=== PATIENT | male | born 1995 | race Caucasian/White ===

== ENCOUNTER 2018-10-02 15:42 | Emergency (ER) | payer BC ==
[2018-10-02 15:56] VITALS: BP 152/100
--- NOTE | 2018-10-02 16:40 | XRAY Report ---
Reason: pain Procedure Date: 10/02/2018 Accession Number: [id number] / [id number] Procedure: XR - Lumbar Spine 2 View CPT Code: FULL RESULT: EXAM: LUMBOSACRAL SPINE RADIOGRAPHY EXAM DATE: 10/02/2018 04:23 PM. CLINICAL HISTORY: Pain. COMPARISONS: None. TECHNIQUE: 2 views. FINDINGS: Alignment: Normal. No spondylolisthesis or scoliosis. Bones: Five [id number] lumbar vertebral bodies are present. No acute fracture.. Disks: Mild L5-S1 disk height loss. There may be slight L4-L5 disk height loss as well. Facets: Unremarkable. Sacroiliac Joints: Unremarkable. Soft Tissues: Unremarkable. IMPRESSION: Mild lower lumbar disk degeneration. RADIA
--- NOTE | 2018-10-02 17:03 | ED Physician Documentation ---
PD HPI BACK PAIN - Stated complaint Stated Complaint: BK PX - Chief complaint Chief Complaint: Back Pain - History obtained from History obtained from: Patient, Family - History of Present Illness Timing - duration: Months (8) Timing - details: Gradual onset, Still present, Intermittant Pain level max: 10 Pain level now: 10 Location: Lower Quality: Spasm, Sharp, Similar to prior episodes Associated symptoms: No: Fever, Weakness, Numbness, Incontinent of urine, Hematuria, Incontinent of stool Improves with: Rest Worsened by: Movement Contributing factors: Other (MMA or fight sports) Similar symptoms before: Diagnosis Recently seen: Clinic - Additional information Additional information: 22-year-old male with no past medical or surgical history complaining of chronic low back pain the past 8 months. Patient stated he used to do [employer] sports fight and might have injured his back. According to his chiropractor from [place] that there is changes on his L5. He is here today as he had moved to [place] 4 weeks ago and looking for primary doctor and pain medication. Patient denies any recent injury or lifting injuries. Review of Systems Ten Systems: 10 systems reviewed and negative Constitutional: denies: Fever, Myalgias GI: denies: Abdominal Pain, Nausea, Vomiting, Constipation, Diarrhea : denies: Dysuria, Hematuria Musculoskeletal: reports: Back pain. denies: Neck pain, Extremity pain, Joint pain, Extremity swelling, Joint swelling, Pain with weight bearing Neurologic: denies: Generalized weakness, Focal weakness, Numbness, Head injury PD PAST MEDICAL HISTORY - Past Medical History Past Medical History: No - Past Surgical History Past Surgical History: No - Present Medications Home Medications: Ambulatory Orders Medication Instructions Recorded Confirmed Cyclobenzaprine [Flexeril] 10 mg PO TID PRN #20 tablet 10/02/18 Ibuprofen [Motrin] 800 mg PO Q8H PRN #30 tablet 10/02/18 Lidocaine Patch 5% [Lidoderm Patch] 1 patch TOP DAILY PRN #10 patch 10/02/18 - Social History Does the pt smoke?: No Smoking Status: Never smoker Does the pt drink ETOH?: Yes Does the pt have substance abuse?: No - Immunizations Immunizations are current?: Yes PD ED PE NORMAL - Vitals Vital signs reviewed: Yes - General General: Alert and oriented X 3, No acute distress, Well developed/nourished - HEENT HEENT: Moist mucous membranes - Neck Neck: Supple, no meningeal sign, No bony TTP - Cardiac Cardiac: RRR, No murmur - Respiratory Respiratory: No respiratory distress, Clear bilaterally - Abdomen Abdomen: Normal bowel sounds, Soft, Non tender, Non distended - Back Back: No CVA TTP, No spinal TTP, Other (With right leg raising patient stated his back hurts more.) - Derm Derm: Normal color, Warm and dry, No rash - Extremities Extremities: No deformity, No tenderness to palpate, Normal ROM s pain, No edema - Neuro Neuro: Alert and oriented X 3, No motor deficit, No sensory deficit, Other (Ambulatory with steady gait. No midline tenderness in the spine. With forward bending patient is unable to touch his toes due to discomfort.) - Psych Psych: Normal mood, Normal affect Results - Vitals Vitals: Vital Signs - 24 hr 10/02/18 15:54 Temperature 36.7 C Heart Rate 86 Respiratory 16 Rate Blood Pressure 152/100 H O2 Saturation 99 PD MEDICAL DECISION MAKING - ED course Complexity details: re-evaluated patient (1654 Patient laying down as this is his position of comfort. He is able to sit up and stand up without difficulty. Patient and father inform of test results. They are interested in getting a new PCP and we will get them booklet for last list of resources in the area. Will discharge patient on Motrin, Flexeril, lidocaine patch.Patient laying down as this is his position of comfort. He is able to sit up and stand up without difficulty. Patient and father inform of test results. They are interested in getting a new PCP and we will get them booklet for list of resources in the area. Will discharge patient on Motrin, Flexeril, lidocaine patch.), considered differential (Lumbar strain, fracture, herniated disc, arthritis), d/w patient, d/w family Departure - Departure Disposition: 01 Home, Self Care Clinical Impression: Back pain Qualifiers: Back pain location: low back pain Chronicity: chronic Back pain laterality: unspecified Sciatica presence: with sciatica Sciatica laterality: sciatica of right side Qualified Code(s): M54.41 - Lumbago with sciatica, right side Condition: Stable Instructions: ED Neck Back Pain General Prescriptions: Cyclobenzaprine [Flexeril] 10 mg PO TID PRN #20 tablet PRN Reason: Spasms Ibuprofen [Motrin] 800 mg PO Q8H PRN #30 tablet PRN Reason: PAIN &/OR FEVER Lidocaine Patch 5% [Lidoderm Patch] 1 patch TOP DAILY PRN #10 patch PRN Reason: pain Comments: Follow-up with your new primary doctor. Get a referral to an orthopedic doctor. Avoid heavy lifting. Monitor your body mechanics so he does not aggravate your chronic back pain. Take the prescribed medication. If worse return to the emergency room.
== END 2018-10-02 17:12 | disposition home or self-care (01) ==
LOC: ED 15:42
DX: M54.41 Lumbago with sciatica, right side (principal)
CPT/HCPCS: 72100; 99283

== ENCOUNTER 2018-10-20 17:10 | Emergency (ER) | payer OTHER, BC ==
[2018-10-20 17:25] VITALS: BP 137/56
--- NOTE | 2018-10-20 17:35 | ED Physician Documentation ---
PD HPI LOWER EXT INJURY - Stated complaint Stated Complaint: L FOOT INJ - Chief complaint Chief Complaint: Ext Problem - History obtained from History obtained from: Patient - History of Present Illness PD HPI LOW EXT INJURY LOCATION: Left, Foot Type of injury: Twist Where injury occurred: Work Timing - onset: Yesterday Timing - duration: Days (1) Timing - details: Abrupt onset, Still present Improved by: Rest, Immobilization Worsened by: Moving, Palpating Associated symptoms: No: Weakness, Numbness, Tingling, Swelling Contributing factors: No: Anticoagulated Similar symptoms before: Has not had sx before Recently seen: Not recently seen - Additional information Additional information: 22-year-old male was at work yesterday and he had a palate lori he was bringing behind him. He stuck his foot on the wheel of the palate lori to slow the pallet lori down. This forced his foot into the ground forcing the plantar surface of his foot down hard and he now has pain over the dorsum of the first metatarsal. He is able to bear some weight. He went back to work today and he is able to walk on the outside of his foot and after about 3 hours he pain mounted and he had to call off work. He is comfortable when he is in bearing weight. Review of Systems Constitutional: denies: Fever Eyes: denies: Decreased vision Ears: denies: Ear pain Nose: denies: Congestion Throat: denies: Sore throat Respiratory: denies: Cough GI: denies: Vomiting : denies: Dysuria, Frequency Skin: denies: Rash Musculoskeletal: reports: Extremity pain, Pain with weight bearing. denies: Neck pain, Back pain, Extremity swelling Neurologic: denies: Generalized weakness, Focal weakness PD PAST MEDICAL HISTORY - Past Medical History Past Medical History: No - Past Surgical History Past Surgical History: No - Present Medications Home Medications: Ambulatory Orders Medication Instructions Recorded Confirmed No Known Home Medications 10/20/18 10/20/18 - Allergies Allergies/Adverse Reactions: Allergies Allergy/AdvReac Type Severity Reaction Status Date / Time No Known Drug Allergies Allergy Verified 10/20/18 17:25 - Social History Does the pt smoke?: No Smoking Status: Never smoker Does the pt drink ETOH?: No Does the pt have substance abuse?: No - Immunizations Immunizations are current?: Yes PD ED PE NORMAL - Vitals Vital signs reviewed: Yes (hypertensive ) - General General: Alert and oriented X 3, No acute distress, Well developed/nourished - HEENT HEENT: Atraumatic, PERRL, EOMI - Respiratory Respiratory: No respiratory distress - Derm Derm: Normal color, Warm and dry, No rash - Extremities Extremities: No deformity, No edema, Other (There is tenderness to the dorsum of the left foot over the mid shaft of the 1st MT. distal n/ intact. There is no pain over the calcaneus or the proximal 5th. 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, No motor deficit, No sensory deficit, Normal speech Eye Opening: Spontaneous Motor: Obeys Commands Verbal: Oriented GCS Score: 15 - Psych Psych: Normal mood, Normal affect Results - Vitals Vitals: Vital Signs - 24 hr 10/20/18 17:23 Temperature 37 C Heart Rate 95 Respiratory 18 Rate Blood Pressure 137/56 H O2 Saturation 100 Oxygen O2 Source Room air - Rads (name of study) foot left Radiology: Prelim report reviewed (Impression: No fracture or subluxation.), EMP read indepedently, See rad report PD MEDICAL DECISION MAKING - ED course Complexity details: reviewed results, re-evaluated patient, considered differential, d/w patient ED course: 22-year-old male with a twisting injury to his left foot has sprained his foot. There is no evidence of fracture on x-ray examination. I expect he will take the better part of a week to resolve this and he works in a warehouse doing a lot of walking and this was not tolerable to him today. Departure - Departure Disposition: 01 Home, Self Care Clinical Impression: Sprain of left foot Qualifiers: Encounter type: initial encounter Qualified Code(s): S93.602A - Unspecified sprain of left foot, initial encounter Condition: Stable Instructions: ED Sprain Foot Follow-Up: [facility] [Provider Group] Forms: Activity restrictions
--- NOTE | 2018-10-20 17:57 | XRAY Report ---
Reason: forced plantar flexion/pain over dorsal 1st mt Procedure Date: 10/20/2018 Accession Number: [id number] / [id number] Procedure: XR - Foot 3 View LT CPT Code: FULL RESULT: EXAM: LEFT FOOT RADIOGRAPHY EXAM DATE: 10/20/2018 05:46 PM. CLINICAL HISTORY: Forced plantar flexion/pain over dorsal 1st mt. COMPARISON: None. TECHNIQUE: 3 views. FINDINGS: Bones: Normal. No fractures or bone lesions. Joints: Normal. No subluxations. Soft Tissues: Normal. No soft tissue swelling. IMPRESSION: No fracture or subluxation. RADIA
== END 2018-10-20 18:10 | disposition home or self-care (01) ==
LOC: ED 17:10
DX: S93.602A Unspecified sprain of left foot, initial encounter (principal); X50.0XXA Overexertion from strenuous movement or load, initial encounter; Y93.89 Activity, other specified; Y99.0 Civilian activity done for income or pay
CPT/HCPCS: 99282

== ENCOUNTER 2018-10-21 15:36 | Emergency (ER) | payer OTHER, BC ==
[2018-10-21 15:42] VITALS: BP 142/90
--- NOTE | 2018-10-21 16:01 | ED Physician Documentation ---
History of Present Illness - Stated complaint Stated Complaint: NEEDS REVISED WORK NOTE - Chief complaint Chief Complaint: General - History obtained from History obtained from: Patient - History of Present Illness Timing: How many days ago (2) Pain level max: 2 Pain level now: 1 Improved by: rest Worsened by: walking - Additonal information Additional information: L foot pain after dropping an object on his foot at work. seen yesterday, negative xrays. Needs note to return to work today. Review of Systems Constitutional: denies: Fever Respiratory: denies: Cough GI: denies: Vomiting Skin: denies: Rash PD PAST MEDICAL HISTORY - Past Medical History Past Medical History: No - Past Surgical History Past Surgical History: No - Present Medications Home Medications: Ambulatory Orders Medication Instructions Recorded Confirmed No Known Home Medications 10/20/18 10/20/18 - Allergies Allergies/Adverse Reactions: Allergies Allergy/AdvReac Type Severity Reaction Status Date / Time No Known Drug Allergies Allergy Verified 10/21/18 15:41 - Social History Does the pt smoke?: No Smoking Status: Never smoker Does the pt drink ETOH?: No Does the pt have substance abuse?: No - Immunizations Immunizations are current?: Yes PD ED PE NORMAL - Vitals Vital signs reviewed: Yes - General General: Alert and oriented X 3, No acute distress - Derm Derm: Warm and dry - Extremities Extremities: Other (mild TTP over the dorsum of the L foot. NVI) - Neuro Neuro: Alert and oriented X 3 - Psych Psych: Normal mood, Normal affect Results - Vitals Vitals: Vital Signs - 24 hr 10/21/18 15:39 Temperature 36 C L Heart Rate 60 Respiratory 18 Rate Blood Pressure 142/90 H O2 Saturation 100 Oxygen O2 Source Room air PD MEDICAL DECISION MAKING - ED course Complexity details: considered differential, d/w patient ED course: Patient with a left foot contusion versus sprain. Ambulate in quite well in the emergency department. Neurovascularly intact. Will release him back to work tomorrow. Ambulates with a steady gait and without a limp. Patient counseled regarding signs and symptoms for which I believe and urgent re-evaluation would be necessary. Patient with good understanding of and agreement to plan and is comfortable going home at this time This document was made in part using voice recognition software. While efforts are made to proofread this document, sound alike and grammatical errors may occur. Departure - Departure Disposition: Home, Self Care Clinical Impression: Sprain of left foot Qualifiers: Encounter type: initial encounter Qualified Code(s): S93.602A - Unspecified sprain of left foot, initial encounter Condition: Good Instructions: ED Sprain Foot Follow-Up: your,doctor in 1 week [Other] Comments: Return if you worsen. You can use motrin or tylenol as needed for pain. Forms: Activity restrictions
== END 2018-10-21 16:08 | disposition home or self-care (01) ==
LOC: ED 15:36
DX: S93.602A Unspecified sprain of left foot, initial encounter (principal); W20.8XXA Other cause of strike by thrown, projected or falling object, initial encounter; Y99.0 Civilian activity done for income or pay
CPT/HCPCS: 99282